=== PATIENT | male | born 1935 | race Caucasian/White ===

== ENCOUNTER 2017-09-25 16:10 | Inpatient (IN) ==
[2017-09-25] MEDS ORDERED: Ipratropium/Albuterol Neb 3 ML IH ONE (16:19)
[2017-09-25] MEDS ORDERED: methylPREDNISolone 125 MG/2 ML VIAL IVP ONE (16:19)
--- NOTE | 2017-09-25 16:26 | Emergency Department Note ---
Disposition Clinical Impression: Hypoxia, COPD exacerbation, Dizziness Disposition: Admitted As Inpatient Condition: Good Referrals: Nilson Soto DO [Primary Care Provider] - Forms: ED Satisfaction Letter General Adult HPI - General Chief complaint: ED Shortness of Breath/Dyspnea Stated complaint: Dizziness/EVELYNE Time Seen by Provider: 09/25/17 16:19 Source: patient Mode of arrival: private vehicle Limitations: no limitations Nursing Notes Reviewed: Yes Vital Signs Reviewed: Yes - History of Present Illness HPI Narrative: 82-year-old male history of oxygen-dependent COPD presents to the ER with a chief complaint of dizziness as well as shortness of breath. Patient states earlier today he was in his recliner and when he stood up he became short of breath and felt dizzy. States the dizziness subsided prior to arrival. He wears 2-1/2 L of oxygen continuously at home. Denies a prior history of admission secondary to respiratory issues. States he has had a cough since yesterday. No fevers. No chest pain. No syncopal episodes. Neighbors present report that his recently passed on Friday unexpectedly and they worried that he might not be taking adequate care of himself. He denies a prior history of DVT, PE or SD. No other complaints. Pt Subjective Complaint: Dyspnea, Dizziness Onset (ago): hour(s) Pain Scale: 0 Consistency: constant Improves with: nothing Worsens with: nothing Associated symptoms: Reports: denies other symptoms Treatments Prior to Arrival: none - Related Data Home Medications Medication Instructions Recorded Confirmed Albuterol Sulfate [Albuterol 2 puff IH Q4H PRN 09/25/17 09/25/17 Inhaler] Aspirin Enteric Coated [Aspirin EC] 81 mg PO DAILY 09/25/17 09/25/17 Budesonide/Formoterol 160/4.5 2 puff IH BID 09/25/17 09/25/17 [Symbicort 160/4.5] Montelukast [Singulair] 10 mg PO DAILY 09/25/17 09/25/17 Tiotropium [Spiriva] 1 puff IH DAILY 09/25/17 09/25/17 Allergies Allergy/AdvReac Type Severity Reaction Status Date / Time No Known Allergies Allergy Verified 09/25/17 16:48 All systems ED: reviewed and negative except as stated. Constitutional: Denies: fever Cardiovascular: Denies: chest pain Respiratory: Reports: cough, dyspnea Gastrointestinal: Denies: abdominal pain, nausea, vomiting Past Medical History - Past Medical History Attestation: Yes The following information was validated with the patient. Source: patient Medical history: Reports: COPD Psychiatric history: Reports: no psych history - Social History Smoking Status: Current every day smoker Smokeless Tobacco Status: No Alcohol use: Reports: none Drug use: Reports: none Physical Exam - General Limitations: no limitations General appearance: alert, in no apparent distress - Head Head exam: atraumatic, normocephalic - Eye Eye exam: Present: normal appearance - ENT ENT exam: normal exam - Neck Neck exam: Present: normal inspection - Chest Chest inspection: Present: normal inspection, symmetric chest wall rise - Respiratory Respiratory exam: Present: respiratory distress, accessory muscle use, prolonged expiratory phase, other (Diminished breath sounds bilaterally) - Cardiovascular Cardiovascular exam: Present: regular rate, normal rhythm, normal heart sounds - Abdominal Exam Abdominal exam: Present: soft, Non-Tender. Absent: tenderness - Extremities Exam Extremities exam: Present: normal inspection, full ROM - Expanded Upper Extremity Exam Shoulder exam: Present: normal inspection, full ROM Arm exam: Present: normal inspection, full ROM Elbow exam: Present: normal inspection, full ROM Forearm/Wrist exam: Present: normal inspection, full ROM Hand exam: Present: normal inspection, full ROM - Expanded Lower Extremity Exam Hip/Pelvis exam: Present: normal inspection, full ROM Upper leg exam: Present: normal inspection, full ROM Knee exam: Present: normal inspection, full ROM Lower leg exam: Present: normal inspection, full ROM Ankle exam: Present: normal inspection, full ROM Foot/toe exam: Present: normal inspection, full ROM - Neurological Exam Neurological exam: Present: alert, other (GCS 15. Nonfocal. Moves all extremities equally. Follows commands.) - Skin Skin exam: Present: warm, dry Course Course Narrative: Patient seen and examined at time of arrival. Presents in respiratory distress hypoxic on his usual oxygen requirement. Increased to 4 L with appropriate response. He is exhibiting pursed lip breathing and tripoding. Poor air movement on exam. Plan for triple DuoNeb treatment, Solu-Medrol, EKG, chest x- ray as well as labs including troponin. He will undoubtedly require admission given his presentation. - Reevaluation(s) Reevaluation #1: Patient appears better after DuoNeb treatments. Agreeable with being admitted. Plan for CT of the head given his dizziness. Vital Signs Temperature 97.4 F L 09/25/17 16:15 Pulse Rate 92 09/25/17 16:15 Respiratory Rate 28 09/25/17 16:15 Blood Pressure 132/87 09/25/17 16:15 O2 Sat by Pulse Oximetry 93 09/25/17 16:15 Temperature 97.4 F L 09/25/17 16:15 Pulse Rate 97 09/25/17 19:09 Respiratory Rate 16 09/25/17 19:09 Blood Pressure 149/65 09/25/17 19:09 O2 Sat by Pulse Oximetry 94 09/25/17 19:09 Oxygen Delivery Oxygen Delivery Nasal Cannula Medical Decision Making - MDM Narrative Medical decision making narrative: 82-year-old male presents with shortness of breath and dizziness. Hypoxic on his usual oxygen requirement. Improved significantly after DuoNeb treatments. No focal deficits. Head CT negative for dizziness. Patient is admitted to the hospitalist service for COPD exacerbation, dizziness, hypoxia. Chest X-Ray 09/25/17 16:19 IMPRESSION: No acute cardiopulmonary disease. COPD. D/ / Valerio Mcdonald MD / Valerio Mcdonald MD Interpreting Provider: Valerio Mcdonald MD 1720 hrs.: Patient's chest x-ray shows no infiltrate. We will reassess him now is breathing treatments are completed and determine best management for him. I think we will most likely bring him coming into the hospital with a social service consult also. Chest X-Ray 09/25/17 16:19 IMPRESSION: No acute cardiopulmonary disease. COPD. D/ / Valerio Mcdonald MD / Valerio Mcdonald MD Interpreting Provider: Valerio Mcdonald MD Head CT 09/25/17 17:30 IMPRESSION: No acute intracranial abnormality. D/ / 09/25/2017 18:39:08 Carlos Enrique Orozco MD / allen Interpreting Provider: Carlos Enrique Orozco MD Chest x-ray and head CT are both nonacute, chest x-ray does show COPD pattern. Consistent with previous. We will proceed with admission. - Lab Data Lab results reviewed: Yes I reviewed the patient's lab results. Result diagrams: 09/25/17 16:20 09/25/17 16:20 Lab Results 09/25/17 09/25/17 09/25/17 Range/Units 16:20 16:20 16:20 WBC 9.8 (4.3-11.1) K/mcL RBC 3.86 L (4.19-5.50) M/mcL Hgb 11.4 L (12.9-16.9) g/dL Hct 34.7 L (37.5-50.1) % MCV 89.9 (83.0-100.0) fL MCH 29.5 (28.0-33.3) pg MCHC 32.9 (31.6-35.5) g/dL RDW 13.6 (11.5-14.5) % Plt Count 329 (140-400) K/mcL MPV 9.5 (9.4-12.4) fL Immature Gran % 0.3 (0-4) % Seg Neutrophils % 71.5 % Lymphocytes % 13.7 % Monocytes % 11.0 % Eosinophils % 2.9 % Basophils % 0.6 % Neutrophils # 7.0 (1.6-8.9) K/mcL Lymphocytes # 1.3 (0.6-4.6) K/mcL Monocytes # 1.1 (0.0-1.3) K/mcL Eosinophils # 0.3 (0.0-0.6) K/mcL Basophils # 0.1 (0.0-0.2) K/mcL Sodium 133 L (136-145) mEq/L Potassium 4.7 (3.5-5.1) mEq/L Chloride 95 L (98-107) mEq/L Carbon Dioxide 30 H (23-29) mEq/L BUN 22 (8-23) mg/dL Creatinine 1.05 (0.70-1.30) mg/dL Est GFR ( Amer) > 60 (> 60) Est GFR (Non-Af Amer) > 60 (> 60) BUN/Creatinine Ratio 21 (6-26) Glucose 95 (70-105) mg/dL POC Glucose (70-99) mg/dL Calculated Osmolality 279 L (280-300) Calcium 9.9 (8.6-10.3) mg/dL Troponin I < 0.03 (< 0.04) ng/mL B-Natriuretic Peptide 85 (Less than 100) pg/mL 09/25/17 Range/Units 16:40 WBC (4.3-11.1) K/mcL RBC (4.19-5.50) M/mcL Hgb (12.9-16.9) g/dL Hct (37.5-50.1) % MCV (83.0-100.0) fL MCH (28.0-33.3) pg MCHC (31.6-35.5) g/dL RDW (11.5-14.5) % Plt Count (140-400) K/mcL MPV (9.4-12.4) fL Immature Gran % (0-4) % Seg Neutrophils % % Lymphocytes % % Monocytes % % Eosinophils % % Basophils % % Neutrophils # (1.6-8.9) K/mcL Lymphocytes # (0.6-4.6) K/mcL Monocytes # (0.0-1.3) K/mcL Eosinophils # (0.0-0.6) K/mcL Basophils # (0.0-0.2) K/mcL Sodium (136-145) mEq/L Potassium (3.5-5.1) mEq/L Chloride (98-107) mEq/L Carbon Dioxide (23-29) mEq/L BUN (8-23) mg/dL Creatinine (0.70-1.30) mg/dL Est GFR ( Amer) (> 60) Est GFR (Non-Af Amer) (> 60) BUN/Creatinine Ratio (6-26) Glucose (70-105) mg/dL POC Glucose 103 H (70-99) mg/dL Calculated Osmolality (280-300) Calcium (8.6-10.3) mg/dL Troponin I (< 0.04) ng/mL B-Natriuretic Peptide (Less than 100) pg/mL - Radiology Data Radiology results reviewed: Yes I reviewed the patient's radiology results. Chest X-Ray 09/25/17 16:19 IMPRESSION: No acute cardiopulmonary disease. COPD. D/ / Valerio Mcdonald MD / Valerio Mcdonald MD Interpreting Provider: Valerio Mcdonald MD Head CT 09/25/17 17:30 IMPRESSION: No acute intracranial abnormality. D/ / 09/25/2017 18:39:08 Carlos Enrique Orozco MD / allen Interpreting Provider: Carlos Enrique Orozco MD - EKG Data EKG #1 EKG attestation: Yes I reviewed and interpreted this EKG. EKG results narrative: EKG demonstrates sinus rhythm with rate of 83 bpm. Normal axis. Normal intervals. Normal R-wave progression. Nonspecific ST-T wave changes inferior leads. No gross ST elevations or depressions. No acute ischemic findings. No significant changes from prior EKG dated 03/20/14. Critical Care Time Critical Care Time: Yes Total Critical Care Time: 50 Attestation: Excluding any separately billable procedures. S.B.A.R. - S.B.A.R. Situation: Demographics, MOA Background: Presenting Complaint, Relevant PMH, Meds, & Allergies Assessment: Course and respsone to treatment, Exam Concerns, Patient/Family Expectation, Pertinant Lab Results Recommendation: Barrier(s) to disposition, Recommendation based on pending studies, treatments, or consults S.B.A.R. Report Given to: Dr. Velarde Attestation Statement - Attestation Attestation: This documentation is done with the assistance of Dragon dictation. Despite efforts made to ensure accuracy, there may be inaccuracies in customer assistance associate or spelling and typographical errors. I examined this patient and my medical decision-making was reviewed with the Resident Physician. I agree with the documented findings, disposition and treatment plan as described except to the extent set forth below. Patient seen and evaluated on arrival with Dr. Farnsworth, I agree with his evaluation and management plan, supervised care the patient's stay. Patient comes in today with dyspnea and dizziness. He has a history of COPD oxygen dependent. His neighbors brought him and they said his unfortunately suddenly on Friday. They state they cannot take care of himself. He is wheezing a lot. They state that he is been smoking more. Also going up on his oxygen. We will order a workup on him breathing treatments he most likely will need admission. Also have social worker delinquency prevention stop by and talked the neighbors also said they can gain some information for him also.
[2017-09-25 16:35] LABS: Basophils # 0.1 K/mcL (0.0-0.2); Basophils % 0.6 %; Eosinophils # 0.3 K/mcL (0.0-0.6); Eosinophils % 2.9 %; Hematocrit 34.7 % (37.5-50.1); Hemoglobin 11.4 g/dL (12.9-16.9); Immature Granulocytes % 0.3 % (0-4); Lymphocytes # 1.3 K/mcL (0.6-4.6); Lymphocytes % 13.7 %; Mean Corpuscular HGB Conc 32.9 g/dL (31.6-35.5); Mean Corpuscular Hemoglobin 29.5 pg (28.0-33.3); Mean Corpuscular Volume 89.9 fL (83.0-100.0); Mean Platelet Volume 9.5 fL (9.4-12.4); Monocytes # 1.1 K/mcL (0.0-1.3); Platelet Count 329 K/mcL (140-400); Red Blood Count 3.86 M/mcL (4.19-5.50); Red Cell Distribution Width 13.6 % (11.5-14.5); Segmented Neutrophils % 71.5 %
[2017-09-25 17:02] LABS: Troponin I < 0.03 ng/mL (< 0.04)
[2017-09-25 17:09] LABS: BUN/Creatinine Ratio 21 (6-26); Blood Urea Nitrogen 22 mg/dL (8-23); Calcium 9.9 mg/dL (8.6-10.3); Carbon Dioxide 30 mEq/L (23-29); Chloride 95 mEq/L (98-107); Glucose 95 mg/dL (70-105); Osmolality,Calculated 279 (280-300); Potassium 4.7 mEq/L (3.5-5.1); Sodium 133 mEq/L (136-145); eGFR For African Americans > 60 (> 60); eGFR For Non-African Americans > 60 (> 60)
--- NOTE | 2017-09-25 17:41 | Internal Med History&Physical ---
Date of Encounter: 09/25/17 Time of Encounter: 17:41 Internal Medicine - H&P: HPI History of present illness: Mr. Mas is a 82 year old male Past Med Surg Social Fam HX - Past Medical History Medical history: COPD Psychiatric history: no psych history - Past Surgical History Additional surgical history: left knee - Social History Smoking Status: Current every day smoker Smokeless Tobacco Status: No Alcohol use: none Drug use: none Internal Medicine - H&P: Meds Albuterol Sulfate [Albuterol Inhaler] 2 puff IH Q4H PRN 09/25/17 [History] Aspirin Enteric Coated [Aspirin EC] 81 mg PO DAILY 09/25/17 [History] Budesonide/Formoterol 160/4.5 [Symbicort 160/4.5] 2 puff IH BID 09/25/17 [ History] Montelukast [Singulair] 10 mg PO DAILY 09/25/17 [History] Tiotropium [Spiriva] 1 puff IH DAILY 09/25/17 [History] 3 Allergy/AdvReac Type Severity Reaction Status Date / Time No Known Allergies Allergy Verified 09/25/17 16:48 All Systems PM: A 10-system review of systems was performed and is negative for pertinent findings except as documented above in the HPI. - Constitutional Vitals: Temp Pulse Resp BP Pulse Ox 97.4 F L 91 16 161/80 94 09/25/17 16:15 09/25/17 17:10 09/25/17 17:10 09/25/17 17:10 09/25/17 17:10 Internal Med - H&P Results - Labs CBC & Chem 7: 09/25/17 16:20 09/25/17 16:20 Labs: Short CBC 09/25/17 Range/Units 16:20 WBC 9.8 (4.3-11.1) K/mcL Hgb 11.4 L (12.9-16.9) g/dL Hct 34.7 L (37.5-50.1) % Plt Count 329 (140-400) K/mcL Neutrophils # 7.0 (1.6-8.9) K/mcL BMP 09/25/17 16:20 Sodium 133 L Potassium 4.7 Chloride 95 L Carbon Dioxide 30 H BUN 22 Creatinine 1.05 Glucose 95 Calcium 9.9 Cardiac Enzymes 09/25/17 Range/Units 16:20 Troponin I < 0.03 (< 0.04) ng/mL - Impressions ITS Impressions Chest X-Ray 09/25/17 16:19 IMPRESSION: No acute cardiopulmonary disease. COPD. D/ / Valerio Mcdonald MD / Valerio Mcdonald MD Interpreting Provider: Valerio Mcdonald MD - Time Spent With Patient Total time spent is greater than 50% in coordination of care (as documented) at patient's floor/unit and/or counseling patient:
[2017-09-25] MEDS ORDERED: Naloxone 0.4 MG/ML INJ IVP PRN (18:53)
[2017-09-25] MEDS ORDERED: Acetaminophen 325 MG TABLET PO PRN (18:53)
--- NOTE | 2017-09-25 19:32 | Internal Med History&Physical ---
<JamisonKurt Denny - Last Filed: 09/25/17 20:20> Date of Encounter: 09/25/17 Time of Encounter: 18:00 Internal Medicine - H&P: HPI Chief complaint: SOB/Dyspnea Admitted From: Emergency Dept Plans for Post Hospital Care: Home History of present illness: Mr. Mas is a 82 year old male w/PMH of COPD and nutritional status deficit presents from the ED w/CC of SO and dyspnea since 11 a.m. this morning. Pt. reports sx worsen w/exertion. Reports hx of COPD and current tobacco abuse ( smokes 1 PPD). Pt. states he also became very dizzy today w/sx. Pt. states that he is under extreme stress in his life d/t his passing away unexpectedly 4 days ago. States he has not been eating or drinking very much since her . Reports cough but denies recent illness, fever, chills, nausea, vomiting, changes in vision, headache, unusual bleeding, abdominal pain, diarrhea, constipation, numbness, tingling, pre-syncope, or syncope. Past Med Surg Social Fam HX - Past Medical History Source: patient, old records reviewed, other (Friends present) Medical history: COPD Psychiatric history: no psych history - Past Surgical History Additional surgical history: left knee - Social History Smoking Status: Current every day smoker Packs per day: 1 PPD Smokeless Tobacco Status: No Alcohol use: none Drug use: none Current living situation: Home Activity Level: Independent ambulation Recent Out of Country Travel Within the Last 8 Weeks: No Exposure or Possible Exposure to Illness During Travel: No - Family History Father Race: Family Member Ethnicity: Non- Living Status: Age at : 57 Cause of : Blood clot Hx Family Cardiac Disorders: Yes (Blood clot) Mother Race: Family Member Ethnicity: Non- Living Status: Age at : 89 Cause of : Old age Brother Race: Family Member Ethnicity: Non- Living Status: Age at : 89 Cause of : Unknown Hx Family Cardiac Disorders: Yes (HTN) Internal Medicine - H&P: Meds Albuterol Sulfate [Albuterol Inhaler] 2 puff IH Q4H PRN 09/25/17 [History] Aspirin Enteric Coated [Aspirin EC] 81 mg PO DAILY 09/25/17 [History] Budesonide/Formoterol 160/4.5 [Symbicort 160/4.5] 2 puff IH BID 09/25/17 [ History] Montelukast [Singulair] 10 mg PO DAILY 09/25/17 [History] Tiotropium [Spiriva] 1 puff IH DAILY 09/25/17 [History] Azithromycin [Zithromax] 500 mg PO Q24H 5 Days #5 tablet 09/26/17 [Rx] Nicotine Patch [Nicoderm] 14 mg TD DAILY 30 Days #30 patch.td24 09/26/17 [Rx] predniSONE [PredniSONE] 40 mg PO DAILY 5 Days #5 tablet 09/26/17 [Rx] 3 Allergy/AdvReac Type Severity Reaction Status Date / Time No Known Allergies Allergy Verified 09/25/17 16:48 All Systems PM: A 10-system review of systems was performed and is negative for pertinent findings except as documented above in the HPI. - Constitutional Constitutional: as per HPI, anorexia, fatigue, weakness, weight loss, no chills , no fever(s), no night sweats - EENT Eyes: no change in vision, no discharge, no pain, no photophobia Ears: no ear discharge, no ear pain, no tinnitus Nose, mouth and throat: no dysphagia, no nasal discharge, no neck pain, no sore throat - Breasts Breasts: as per HPI - Cardiovascular Cardiovascular ROS IM: as per HPI, dyspnea, dyspnea on exertion, lightheadedness , no chest pain, no diaphoresis, no palpitations, no syncope - Respiratory Respiratory: as per HPI, cough, dyspnea, dyspnea on exertion, chest congestion, no wheezing, no excessive phlegm production - Gastrointestinal Gastrointestinal: no abdominal pain, no diarrhea, no hematemesis, no hematochezia, no melena, no nausea, no vomiting - Genitourinary Genitourinary ROS male: as per HPI - Musculoskeletal Musculoskeletal ROS IM: no numbness, no tingling - Integumentary Integumentary IM: no rash, no unusual bruising - Neurological Neurological ROS: no confusion, no convulsions, no focal weakness, no numbness, no tingling, no tremor(s) - Psychiatric Psychiatric: as per HPI - Endocrine Endocrine IM: as per HPI - Hematologic/Lymphatic Hematologic/Lymphatic: no easy bruising - Allergic/Immunologic Allergic/Immunologic: as per HPI - Constitutional Vitals: Temp Pulse Resp BP Pulse Ox 97.4 F L 97 16 149/65 94 09/25/17 16:15 09/25/17 19:09 09/25/17 19:09 09/25/17 19:09 09/25/17 19:09 General appearance: Present: cooperative, mild distress (Respiratory), A&O X 3, pleasant, underweight, loss of weight, answers questions appropriately - Head Head exam: Present: atraumatic, normocephalic - Eye Eye exam: Present: PERRL, conjuntiva pink, sclera anicteric Pupils: Present: PERRL - ENT ENT exam: Present: normal exam - Neck Neck exam general surgery: Present: supple, trachea midline. Absent: lymphadenopathy - Respiratory Respiratory exam: Present: decreased breath sounds. Absent: accessory muscle use, rales, rhonchi, wheezes - Cardiovascular Cardiovascular exam: Present: RRR, +S1, +S2. Absent: diastolic murmur, gallop, rubs, systolic murmur - GI/Abdominal GI/Abdominal exam: Present: normal bowel sounds, soft, no peritoneal signs. Absent: distended, tenderness - Rectal Rectal exam: Present: deferred - Additional comments: exam deferred. - Extremities Exam Extremities exam: Present: warm, radial pulses palpable and symmetrical. Absent : calf tenderness, cyanotic, pedal edema - Back Exam Back exam: Present: normal inspection - Neurological Exam Neurological exam: Present: CN II-XII intact, oriented X3, no focal deficits. Absent: pronater drift, facial droop, speech deficit - Psychiatric Psychiatric exam: Present: normal affect, normal mood - Skin Skin exam: Present: dry, intact Internal Med - H&P Results - Labs CBC & Chem 7: 09/25/17 16:20 09/25/17 16:20 Labs: Short CBC 09/25/17 Range/Units 16:20 WBC 9.8 (4.3-11.1) K/mcL Hgb 11.4 L (12.9-16.9) g/dL Hct 34.7 L (37.5-50.1) % Plt Count 329 (140-400) K/mcL Neutrophils # 7.0 (1.6-8.9) K/mcL BMP 09/25/17 16:20 Sodium 133 L Potassium 4.7 Chloride 95 L Carbon Dioxide 30 H BUN 22 Creatinine 1.05 Glucose 95 Calcium 9.9 Cardiac Enzymes 09/25/17 Range/Units 16:20 Troponin I < 0.03 (< 0.04) ng/mL - EKG Data EKG shows normal: sinus rhythm Rate: normal - EKG Data Prior EKG available for review: yes Interpretation IM: normal EKG EKG comments: 09/25/17 19:44 EKG dated 03/20/14 shows sinus rhythm and rightward axis. EKG dated 09/25/17 shows sinus rhythm and normal ECG. - Impressions ITS Impressions Chest X-Ray 09/25/17 16:19 IMPRESSION: No acute cardiopulmonary disease. COPD. D/ / Valerio Mcdonald MD / Valerio Mcdonald MD Interpreting Provider: Valerio Mcdonald MD Head CT 09/25/17 17:30 IMPRESSION: No acute intracranial abnormality. D/ / 09/25/2017 18:39:08 Carlos Enrique Orozco MD / allen Interpreting Provider: Carlos Enrique Orozco MD - Diagnostic Studies Chest x-ray Additional comments: Impressions Chest X-Ray 09/25/17 16:19 IMPRESSION: No acute cardiopulmonary disease. COPD. D/ / Valerio Mcdonald MD / Valerio Mcdonald MD Interpreting Provider: Valerio Mcdonald MD CT scan - head Additional comments: Impressions Head CT 09/25/17 17:30 IMPRESSION: No acute intracranial abnormality. D/ / 09/25/2017 18:39:08 Carlos Enrique Orozco MD / allen Interpreting Provider: Carlos Enrique Orozco MD - Assessment and plan (1) Acute exacerbation of chronic obstructive pulmonary disease (COPD) Status: Acute Assessment and plan: Acute exacerbation of COPD. Pt. reports worsening sx this a.m. Hx of COPD and current tobacco abuse (Pt. reports smoking 1 PPD and has increased tobacco use d /t 's untimely 4 days ago). Hx of home O2 use @ 2-3L. 1V CXR shows no acute cardiopulmonary disease and COPD. 40 mg IVP Solu-Medrol Q8HR. DuoNebs Q4HR scheduled. Supplemental O2 w/titration and SpO2 monitoring. Continue pts. inhalers. IVPB azithromycin for bronchitis infection coverage. Respiratory infection panel ordered. Mucinex for cough PRN. Falls/safety precautions and up w/assist only d/t weakness and SOB. Pt. discussed w/Dr. Velarde who agrees w/ plan of care. Pt. is high risk for respiratory distress/failure and further morbidity d/t current sx and hx of COPD, failure to thrive and current nutritional status, increased tobacco use d/t the untimely of his spouse, and risk factors. Inpatient. (2) Bronchitis Status: Acute Assessment and plan: Acute SOB that pt. reports worsened this a.m. Hx of COPD. Will cover pt. for bronchitis infection w/IV abx. Supplemental O2 w/titration and SpO2 monitoring. Continue pts. inhalers. DuoNebs Q4HR scheduled. Mucinex for cough PRN. IVPB azithromycin for bronchitis infection coverage. Respiratory infection panel ordered. (3) SOB (shortness of breath) Status: Acute Assessment and plan: Acute SOB that pt. reports worsened this a.m. Concern for possible PE d/t quick onset, so D-Dimer ordered. Will add CTA of chest if elevated. Supplemental O2 w/ titration and SpO2 monitoring. Continue pts. inhalers. DuoNebs Q4HR scheduled. Mucinex for cough PRN. Falls/safety precautions. Up w/assist only. IVPB azithromycin for bronchitis infection coverage. Respiratory infection panel ordered. (4) Cough Status: Acute Assessment and plan: Acute cough accompanying current acute exacerbation of COPD. The CXR shows no acute cardiopulmonary disease and COPD. Mucinex ordered PRN for cough. DuoNebs Q4HR. Supplemental O2 w/titration and SpO2 monitoring. (5) Dizziness Status: Acute Assessment and plan: Acute dizziness w/SOB and dyspnea sx. Supplemental O2 w/titration and SpO2 monitoring. DuoNebs Q4HR scheduled. Continue pts. inhalers. Falls/safety precautions and up with assist only. (6) Failure to thrive Status: Acute Assessment and plan: Acute failure to thrive. Pts. weight 53.07kg and BMI currently 15.9 on admission. Pt. is high risk for nutritional deficit and increased failure to thrive d/t the unexpected loss of his 4 days ago. Pt. reports he has not been eating or drinking since. Regular diet w/Nutritional consult for PO supplementation. Pt. states he likes strawberry Ensure or Boost. SW consult ordered to assess pt. for home needs or counseling services to address his current grief. Qualifiers: Failure to thrive age range: in adult Qualified Code(s): R62.7 - Adult failure to thrive (7) Grief Status: Acute Assessment and plan: Acute grief r/t the unexpected loss of pts. 4 days ago. Pt. states that he has not been eating or drinking much since her . Denies any thoughts of self-harm. Pt. becomes tearful during discussion of loss. SW consult ordered to provide recommendations for counseling services. Nutrition consult ordered for PO supplemental and to address current failure to thrive. Pt. to be monitored. (8) Tobacco abuse Status: Chronic Assessment and plan: Hx of chronic tobacco abuse. Pt. reports he was attempting to cut back when his unexpectedly 4 days ago. Reports he is now smoking 1 PPD w/no intent to quit d/t current severe stress r/t loss. 14 mg nicotine patch ordered. (9) DVT prophylaxis Status: Acute Assessment and plan: Bilateral SCDs on LEs for DVT prophylaxis. - Time Spent With Patient Total time spent is greater than 50% in coordination of care (as documented) at patient's floor/unit and/or counseling patient: Greater than 35 minutes <Rebecca Velarde - Last Filed: 09/27/17 15:36> Date of Encounter: 09/27/17 Internal Medicine - H&P: HPI History of present illness: Mr. Mas is a 82 year old male All Systems PM: A 10-system review of systems was performed and is negative for pertinent findings except as documented above in the HPI. - Constitutional Vitals: Temp Pulse Resp BP Pulse Ox 97.9 F 92 16 159/68 96 09/26/17 15:50 09/26/17 15:50 09/26/17 16:01 09/26/17 15:50 09/26/17 16:01 Internal Med - H&P Results - Labs CBC & Chem 7: 09/26/17 00:26 09/26/17 00:26 - Attending Attestation I personally and independently interviewed and examined the patient with Resident , and I reviewed the patient's medical records. I am in agreement with the assessment and proposed treatment plan. I discussed my findings and recommendation with the patient and answer all questions. The patient's medical records were edited to accurately reflect this encounter. - Assessment and plan (1) Acute exacerbation of chronic obstructive pulmonary disease (COPD) Status: Acute (2) Bronchitis Status: Acute (3) Tobacco abuse Status: Chronic - Time Spent With Patient Total time spent is greater than 50% in coordination of care (as documented) at patient's floor/unit and/or counseling patient:
[2017-09-25] MEDS ORDERED: Azithromycin 500 MG in D5% in Water 250 ML IVPB SCH (20:00)
[2017-09-25] MEDS: Budesonide/Formoterol 160/4.5 MDI IH SCH (20:21)
[2017-09-25] MEDS: Ipratropium/Albuterol Neb 3 ML IH SCH ×2 (20:21→23:57)
[2017-09-25] MEDS: Nicotine 14 MG PATCH.TD24 TD SCH (22:04)
[2017-09-25] MEDS: 0.9 % Sodium Chloride 1,000 ML IVC SCH (22:05)
[2017-09-26] MEDS: MethylPREDNISolone 40 MG/ML VIAL IVP SCH ×2 (00:20→09:02)
[2017-09-26 01:01] LABS: Basophils % 0.2 %; Hematocrit 33.6 % (37.5-50.1); Hemoglobin 10.8 g/dL (12.9-16.9); Immature Granulocytes % 0.2 % (0-4); Lymphocytes # 0.3 K/mcL (0.6-4.6); Lymphocytes % 3.3 %; Mean Corpuscular HGB Conc 32.1 g/dL (31.6-35.5); Mean Corpuscular Hemoglobin 28.7 pg (28.0-33.3); Mean Corpuscular Volume 89.4 fL (83.0-100.0); Mean Platelet Volume 9.9 fL (9.4-12.4); Monocytes % 0.5 %; Neutrophils # 8.3 K/mcL (1.6-8.9); Platelet Count 319 K/mcL (140-400); Red Blood Count 3.76 M/mcL (4.19-5.50); Red Cell Distribution Width 13.8 % (11.5-14.5); Segmented Neutrophils % 95.8 %
[2017-09-26 01:23] LABS: Alanine Aminotransferase 10 Units/L (7-52); Albumin 3.6 g/dL (3.5-5.7); Albumin/Globulin Ratio 1.1 (1.1-2.2); Alkaline Phosphatase 23 Units/L (34-104); Aspartate Amino Transferase 12 Units/L (13-39); BUN/Creatinine Ratio 23 (6-26); Bilirubin,Total 0.3 mg/dL (0.3-1.0); Blood Urea Nitrogen 23 mg/dL (8-23); Calcium 9.4 mg/dL (8.6-10.3); Carbon Dioxide 27 mEq/L (23-29); Chloride 97 mEq/L (98-107); Chol/HDL Ratio 3.2 (0-4.9); Cholesterol 144 mg/dL (< 200); Globulin 3.4 g/dL (2.4-3.5); Glucose 214 mg/dL (70-105); HDL Cholesterol 45 mg/dL (40-59); LDL Cholesterol,Calculated 86 mg/dL (0-99); Magnesium 2.1 mg/dL (1.6-2.6); Osmolality,Calculated 288 (280-300); Potassium 4.3 mEq/L (3.5-5.1); Sodium 134 mEq/L (136-145); Triglycerides 65 mg/dL (< 150); eGFR For African Americans > 60 (> 60); eGFR For Non-African Americans > 60 (> 60)
[2017-09-26] MEDS: Ipratropium/Albuterol Neb 3 ML IH SCH ×4 (04:01→16:01)
[2017-09-26] MEDS: Budesonide/Formoterol 160/4.5 MDI IH SCH (07:49)
[2017-09-26 08:19] LABS: Estimated Average Glucose 123 mg/dl; Hemoglobin A1C 5.9 %
[2017-09-26] MEDS ORDERED: Aspirin Enteric Coated 81 MG Tablet PO SCH (09:00)
[2017-09-26] MEDS: 0.9 % Sodium Chloride 1,000 ML IVC SCH (09:02)
[2017-09-26] MEDS: Nicotine 14 MG PATCH.TD24 TD SCH (09:02)
[2017-09-26] MEDS ORDERED: Tiotropium 18 MCG inhalation IH SCH (10:00)
[2017-09-26 15:57] VITALS: BP 159/68
[2017-09-26] MEDS ORDERED: predniSONE 20 MG TABLET PO SCH (16:00)
--- NOTE | 2017-09-26 16:01 | Discharge Summary ---
- NOTES TO OUTPATIENT PROVIDER Notes to Outpatient Provider: Still with mild wheezing but significant clinical improvement. Please follow up breathing status. Orders not resulted at time of discharge: Pending orders 09/27/17 04:00 BMP [Basic Metabolic Panel] AM 0400 Complete Blood Count [HEME] AM 0400 Date of Encounter: 09/26/17 Time of Encounter: 11:30 - Discharge Diagnosis (1) Acute exacerbation of chronic obstructive pulmonary disease (COPD) Priority: Primary Status: Acute Assessment and Plan: Recent increased tobacco use due to recent lifestress likely contributed to symptoms CXR no acute findings apart from COPD. Solumedrol tapered to prednisone. Wheezing improved. Walked with physical therapy without desaturations and feels fine now requesting to go home. Will discharge to complete course of Abx and prednisone for 5 days. (2) Bronchitis Priority: Secondary Status: Acute Assessment and Plan: Complete course of Azithromycin for 5 days (3) Tobacco abuse Priority: Secondary Status: Chronic Assessment and Plan: Recently smoking more due to life stress Is on a nicotine patch and working on reducing tobacco use. Hospital course: Mr. Mas is a 82 year old male - Time Spent with Patient Total time spent providing and/or coordinating discharge services: - Discharge Medications Prescriptions: Azithromycin [Zithromax] 500 mg PO Q24H 5 Days #5 tablet Nicotine Patch [Nicoderm] 14 mg TD DAILY 30 Days #30 patch.td24 predniSONE [PredniSONE] 40 mg PO DAILY 5 Days #5 tablet Home Medications: Albuterol Sulfate [Albuterol Inhaler] 2 puff IH Q4H PRN 09/25/17 [History] Aspirin Enteric Coated [Aspirin EC] 81 mg PO DAILY 09/25/17 [History] Budesonide/Formoterol 160/4.5 [Symbicort 160/4.5] 2 puff IH BID 09/25/17 [ History] Montelukast [Singulair] 10 mg PO DAILY 09/25/17 [History] Tiotropium [Spiriva] 1 puff IH DAILY 09/25/17 [History] Azithromycin [Zithromax] 500 mg PO Q24H 5 Days #5 tablet 09/26/17 [Rx] Nicotine Patch [Nicoderm] 14 mg TD DAILY 30 Days #30 patch.td24 09/26/17 [Rx] predniSONE [PredniSONE] 40 mg PO DAILY 5 Days #5 tablet 09/26/17 [Rx] Allergies/Adverse Reactions: 3 Allergy/AdvReac Type Severity Reaction Status Date / Time No Known Allergies Allergy Verified 09/25/17 16:48 Date of admission: 09/25/17 20:47 Primary care physician: Nilson Soto DO - Constitutional Vitals: Temp Pulse Resp BP Pulse Ox 97.9 F 92 16 159/68 94 09/26/17 15:50 09/26/17 15:50 09/26/17 15:50 09/26/17 15:50 09/26/17 15:50 General appearance: Present: cooperative, mild distress (Respiratory), A&O X 3, pleasant, underweight, loss of weight, answers questions appropriately - Patient Status Disposition: Home, Self-Care Condition: Fair Overall status at discharge: patient is progressing back to baseline - Discharge Instructions Instructions: How to Stop Smoking (DC), Chronic Obstructive Pulmonary Disease ( DC) - Diet and Activity Activity: resume usual activities as tolerated - VTE Documentation of Mechanical Device: Intermittent pneumatic compression device
--- NOTE | 2017-09-26 17:19 | Electrocardiograph Report ---
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
[2017-09-26] MEDS ORDERED: *HR* Heparin 5,000 UNIT/ML VIAL SQ SCH (18:00)
[2017-09-26] MEDS ORDERED: Azithromycin 250 MG TABLET PO SCH (20:00)
== END 2017-09-26 17:42 | disposition home or self-care (01) | DRG 191 ==
LOC: EMEROO 16:10 → 2ANU 16:10 → SUATTDRO 20:47
PROVIDERS: ADMIT Internal Medicine Nephrology; ATTEND Student in an Organized Health Care Education/Training Program